=== PATIENT | female | born 1980 | race Caucasian/White ===

== ENCOUNTER 2020-11-01 17:03 | Inpatient (IN) | payer MEDICAID ==
[~2020-11-01] VITALS: Ht 167.6 cm; Wt 115.1 kg
--- NOTE | ~2020-11-01 | OP ---
PATIENT NAME: MARILIN BRAVO MEDICAL RECORD: [id number] :80 LOCATION:D.M2 D.2105 ADMISSION DATE:11/01/20 SURGEON: JESÚS ZIMMERMAN MD DATE OF OPERATION: 11/03/2020 PREOPERATIVE DIAGNOSES: 1. End-stage renal disease. 2. Complications with left upper extremity arteriovenous graft. 3. Morbid obesity. POSTOPERATIVE DIAGNOSES: 1. End-stage renal disease. 2. Complications with left upper extremity arteriovenous graft. 3. Morbid obesity. PROCEDURE: 1. Right IJ 23 cm HemoSplit catheter placement. 2. Left upper extremity fistulogram. 3. Fluoroscopic interpretation. SURGEON: Jesús Zimmerman MD REPORT OF PROCEDURE: The patient's right neck and chest were prepped and draped in sterile fashion. Using ultrasound guidance, a needle was used to cannulate the right internal jugular vein. Attempts were made to pass a wire, but we eventually had to pass a 0.035 Glidewire through an area of severe stenosis in the distal IJ and brachiocephalic vein, we were eventually able to pass through all of this down to the superior vena cava and we could see the wire pass into the right ventricle. A small dilator was placed over the wire and we were able to switch out for an Amplatz wire. A 23 cm HemoSplit catheter was placed through a small opening in the patient's right lateral chest and tunneled to the wire exit site. The multiple dilators were placed over the wire using fluoroscopic guidance followed by the dilator trocar device. The dilator and wire were removed and the catheter tips were advanced through the trocar. Once the trocar was removed, we pulled the catheter back until it rested in good position in the superior vena cava near the right atrial junction. The catheter aspirated nonpulsatile dark blood and flushed easily with heparinized saline. We then sutured this into place with 3-0 nylons and the skin incisions were closed with subcutaneous 5-0 Monocryl. After this was dressed appropriately, then we prepped the patient's left upper extremity. A micropuncture device was used to access the patient's left upper extremity graft. This graft extended from the brachial artery and was a straight line graft to the axillary vein. I could feel pulsatile flow through the graft. I was able to shoot some dye through the graft for fistulogram and this showed good flow of contrast through the AV graft through a stent towards the distal aspect of the graft near the venous access. This extended out and flowed easily into the axillary vein. Compression on the graft gave us good backfilling through the graft and the arterial anastomosis. All these anastomoses appeared to be widely open and patent and there was good flow. At this point I saw and did not do any further procedures because I did not feel that a revision would help out. Anatomically, the graft looked to be in good position with no significant stenosis present. At this point, the Angiocath was removed and a 5-0 Monocryl was used in a [id number] to close off the opening. COMPLICATIONS: None. OPERATIVE REPORT [id number] MARILIN BRAVO CONDITION: Stable. ANESTHESIA: General endotracheal. BLOOD LOSS: 100 mL. TRANSINT:[id number] Voice Confirmation ID: [id number] DOCUMENT ID: [id number] JESÚS ZIMMERMAN MD CC: NATHALY DYER and ELISA PROCTOR MD [id number] DICTATION DATE: 11/03/20 1434 MEDICAL DATA ANALYST: 11/03/20 1506 ADM IN [facility] [address] [place] [address]
[~2020-11-01 17:03] MED LIST: CATAPRES0.1 MG PO; GEMFIBROZIL600 MG PO; GLUCOTROL 5 MG T5 MG PO; HYDRALAZINE HC100 MG PO; ISOSORBIDE MONO60 M1 PO; LASIX80 MG PO; LISINOPRIL20 MG PO; LOPRESSOR25 MG PO; NORVASC10 MG PO; TRIPHROCAPS PO; TUMS PO
--- NOTE | 2020-11-01 17:30 | NUR ---
PT ARRIVED VIA WHEELCHAIR AT THIS TIME. PT AMBULATED TO BED WITHOUT ASSISTANCE. PROSTHETIC TO RLE NOTED, RR EVEN NON LABORED ON ROOM AIR. DIAYLSIS PORT NOTED TO LEFT EXTREMITY. APPROP SIGNS PLACED ON DOOR. PT AAOX3, PLEASANT AND ANSWERS QUESTIONS APPROP. NO DISTRESS NOTED, WILL CONTINUE TO MONITOR. CLWR.
[2020-11-01 17:48] VITALS: BP 167/88
[2020-11-01 17:57] LABS: BASOPHILS 0.1 % (0-2); EOSINOPHILS 2.1 % (0-7); HEMOGLOBIN 8.9 g/dL (12-16); IMMATURE GRANULOCYTES 0.1 % (0-5); LYMPHOCYTE ABS# 1.13 10x3/uL (1.18-3.74); LYMPHOCYTES 14.6 % (15-50); MCH 29.1 pg (26.0-34.0); MCHC 31.8 g/dL (31.0-37.0); MCV 91.5 fL (80.0-100.0); MEAN PLATELET VOLUME 9.9 fL (7.4-10.4); MONOCYTES 6.5 % (2-11); NEUTROPHIL ABS# 5.91 10x3/uL (1.56-6.13); NEUTROPHILS 76.6 % (40-80); PLATELET COUNT 227 10x3/uL (130-400); RBC 3.06 10x6/uL (4.00-5.40); RDW 14.2 % (11.5-14.5); WBC 7.7 10x3/uL (4.8-10.8)
--- NOTE | 2020-11-01 18:08 | NUR ---
MEDS GIVEN PER EMAR AT THIS TIME. PT SITTING UP IN BED TALKING ON CELL PHONE, RR EVEN NON LABORED. NO NEEDS VOICED. CLWR.
[2020-11-01 18:13] LABS: APTT 29.2 SECONDS (22.8-39.4); INR 1.17 (0.85-1.17); PROTIME 13.8 SECONDS (11.6-15.0)
[2020-11-01 18:25] LABS: ALBUMIN 3.5 g/dL (3.4-5.0); ANION GAP 18.7 mmol/L (8-16); BILIRUBIN - DIRECT 0.11 mg/dL (0.00-0.30); BILIRUBIN - INDIRECT 0.23 mg/dL (0.00-1.00); BILIRUBIN - TOTAL 0.34 mg/dL (0.2-1.3); CALCIUM 8.2 mg/dL (8.5-10.1); CARBON DIOXIDE 23.5 mmol/L (21.0-32.0); CREATININE - SERUM 12.2 mg/dL (0.6-1.3); PROTEIN - SERUM 6.4 g/dL (6.4-8.2)
[2020-11-01 18:35] LABS: POTASSIUM - SERUM 6.2 mmol/L (3.5-5.1)
--- NOTE | 2020-11-01 18:37 | NUR ---
MIRELLA MENDEZ REGARDING CRITICAL LAB VALUE.
--- NOTE | 2020-11-01 21:00 | NUR ---
PT POTASSIUM RESULTED AT [address] DYER PAGED AT 1927, NEW MED ORDERS OBTAINED AND PROCESSED. WILL RECHECK POTASSIUM LEVEL.
--- NOTE | 2020-11-01 22:08 | NUR ---
PT BLOOD SUGAR IS 65, PT AAOX4 AND IS ASYMPTOMATIC AT THIS TIME. PT GIVEN ORANGE JUICE TO DRINK AND WILL RECHECK SUGAR IN AN HOUR. PT REPORTS NO BOWEL MOVEMENT SINCE KAYEXALATE ADMINISTRATION. LAB IN ROOM TO DRAW POTASSIUM LEVEL.
[2020-11-02 05:18] VITALS: BP 178/79
[2020-11-02 06:20] LABS: BASOPHILS 0.4 % (0-2); EOSINOPHILS 2.4 % (0-7); HEMOGLOBIN 8.7 g/dL (12-16); IMMATURE GRANULOCYTES 0.1 % (0-5); LYMPHOCYTE ABS# 1.33 10x3/uL (1.18-3.74); LYMPHOCYTES 17.9 % (15-50); MCH 28.9 pg (26.0-34.0); MCHC 31.1 g/dL (31.0-37.0); MEAN PLATELET VOLUME 10.7 fL (7.4-10.4); MONOCYTES 7.9 % (2-11); NEUTROPHIL ABS# 5.29 10x3/uL (1.56-6.13); NEUTROPHILS 71.3 % (40-80); PLATELET COUNT 227 10x3/uL (130-400); RBC 3.01 10x6/uL (4.00-5.40); RDW 14.4 % (11.5-14.5); WBC 7.4 10x3/uL (4.8-10.8)
[2020-11-02 06:50] LABS: ALBUMIN 3.3 g/dL (3.4-5.0); ANION GAP 21.4 mmol/L (8-16); BILIRUBIN - TOTAL 0.37 mg/dL (0.2-1.3); CALCIUM 7.7 mg/dL (8.5-10.1); CARBON DIOXIDE 21.2 mmol/L (21.0-32.0); CREATININE - SERUM 12.6 mg/dL (0.6-1.3); PROTEIN - SERUM 6.1 g/dL (6.4-8.2)
[2020-11-02 07:00] LABS: POTASSIUM - SERUM 6.6 mmol/L (3.5-5.1)
--- NOTE | 2020-11-02 07:12 | NUR ---
MIRELLA MENDEZ REGARDING CRITICAL LAB VALUE
--- NOTE | 2020-11-02 07:15 | NUR ---
SPOKE WITH JOCELYNN GUEVARA REGARDING POTASSIUM. NEW ORDERS RECEIVED AND READ BACK.
--- NOTE | 2020-11-02 07:30 | NUR ---
DR. DYER IN ROOM AT THIS TIME. PT SITE APPEARS TO BE WORKING PER AND SHE WILL BE GOING TO DIALYSIS TODAY. MD STATES TO GIVE CALCIUM, D50 AMP AND 10U INSULIN. NO FURTHER ORDERS AT THIS TIME.
[2020-11-02 07:56] VITALS: BP 187/88
--- NOTE | 2020-11-02 08:22 | NUR ---
AM MEDS GIVEN INCLUDING X1 ORDER FOR POTASSIUM LEVEL. PT SITTING UP IN BED WITH HOB RAISED, RR EVEN NON LABORED ON ROOM AIR. PHONE GIVEN PER REQUEST. NO FURTHER NEEDS VOICED. CLWR.
--- NOTE | 2020-11-02 09:45 | NUR ---
REPORT GIVEN TO DIALYSIS AT THIS TIME.
[2020-11-02 10:52] VITALS: Ht 167.6 cm; Wt 115.1 kg
--- NOTE | 2020-11-02 12:57 | NUR ---
PT ARRIVED FROM DIALYSIS AT THIS TIME VIA TRANSPORT. PT PHONE PLUGGED IN PER REQUEST, PT LUNCH TRAY GIVEN. RR EVEN NON LABORED. NO NEEDS VOICED. CLWR.
--- NOTE | 2020-11-02 14:37 | NUR ---
MEDS GIVEN PER EMAR. PT SITTING UP IN BED, RR EVEN NON LABORED. NO NEEDS VOICED. CLWR.
--- NOTE | 2020-11-02 15:21 | NUR ---
IV TO RIGHT UPPER ARM D/C D/T DISCOMFORT. NEW IV PLACED TO RIGHT FA 22G, BLOOD RETURN NOTED. IV INFUSION INITIATED. WILL CONTINUE TO MONITOR. CLWR.
[2020-11-02 15:55] VITALS: BP 179/80
--- NOTE | 2020-11-02 16:05 | NUR ---
CONSENTS COMPLETED AT THIS TIME AND PLACED IN CHART.
--- NOTE | 2020-11-02 20:30 | NUR ---
PT IS LAYING IN BED ON RIGHT SIDE SLEEPING. AWAKED EASILY, AAOX4. PT EDUCATION DONE REGARDING MEDICATIONS, FALL PREVENTION, AND NPO AT MIDNIGHT. PT VERBALIZED UNDERSTANDING. PT MEDICATIONS GIVEN ORDERED. VITALS WNL.
[2020-11-02 21:34] VITALS: BP 175/86
[2020-11-03 00:40] VITALS: BP 156/74
[2020-11-03 06:06] VITALS: BP 166/85
[2020-11-03 06:11] LABS: BASOPHILS 0.2 % (0-2); EOSINOPHILS 1.4 % (0-7); HEMATOCRIT 25.8 % (36.0-48.0); HEMOGLOBIN 8.2 g/dL (12-16); IMMATURE GRANULOCYTES 0.3 % (0-5); LYMPHOCYTE ABS# 1.46 10x3/uL (1.18-3.74); LYMPHOCYTES 22.9 % (15-50); MCH 28.5 pg (26.0-34.0); MCHC 31.8 g/dL (31.0-37.0); MEAN PLATELET VOLUME 10.2 fL (7.4-10.4); MONOCYTES 7.8 % (2-11); NEUTROPHILS 67.4 % (40-80); PLATELET COUNT 233 10x3/uL (130-400); RBC 2.88 10x6/uL (4.00-5.40); RDW 14.1 % (11.5-14.5); WBC 6.4 10x3/uL (4.8-10.8)
[2020-11-03 06:14] LABS: MCV 89.6 fL (80.0-100.0)
[2020-11-03 06:27] LABS: ALBUMIN 3.2 g/dL (3.4-5.0); ANION GAP 20.2 mmol/L (8-16); BILIRUBIN - TOTAL 0.37 mg/dL (0.2-1.3); CALCIUM 7.8 mg/dL (8.5-10.1); CARBON DIOXIDE 23.1 mmol/L (21.0-32.0); CREATININE - SERUM 14.8 mg/dL (0.6-1.3); POTASSIUM - SERUM 5.3 mmol/L (3.5-5.1); PROTEIN - SERUM 6.3 g/dL (6.4-8.2)
--- NOTE | 2020-11-03 06:39 | NUR ---
DR. MANISHA VU FOR CRITICAL POTASSIUM LEVEL
--- NOTE | 2020-11-03 08:00 | NUR ---
PT RECEIVED AWAKE AND ALERT, NPO FOR PROCEDURE TODAY. LEFT ARM FISTULA WITH BRUIT AND THRILL. BP ELEVATED SO MEDS GIVEN, WILL LET DIALYSIS KNOW IF SHE GOES DOWN TODAY.
[2020-11-03 08:02] VITALS: BP 205/109
[2020-11-03 11:10] VITALS: BP 184/102
--- NOTE | 2020-11-03 15:24 | NUR ---
K TO TRANSPORT TO [facility] WAITING FOR DIALYSIS SC DR ANGULO
[2020-11-03 15:36] VITALS: BP 183/87
--- NOTE | 2020-11-03 16:04 | NUR ---
PT TO ROOM FROM PACU. VITALS STABLE. TRANSPORT TO DIALYSIS FOR TREATMENT. RIGHT HEMOSPLIT NOTED WITH SMALL AMT DRAINAGE UNDER DRESSING.
[2020-11-03 20:50] VITALS: BP 210/100
--- NOTE | 2020-11-04 05:00 | NUR ---
I have reviewed this patient and I concur with the Shift Assessment completed by the Licensed Practical Nurse today this shift.
[2020-11-04 06:25] LABS: BASOPHILS 0.3 % (0-2); EOSINOPHILS 0.6 % (0-7); HEMATOCRIT 28.3 % (36.0-48.0); IMMATURE GRANULOCYTES 0.1 % (0-5); LYMPHOCYTE ABS# 1.41 10x3/uL (1.18-3.74); LYMPHOCYTES 20.7 % (15-50); MCH 28.6 pg (26.0-34.0); MCHC 31.8 g/dL (31.0-37.0); MCV 89.8 fL (80.0-100.0); MEAN PLATELET VOLUME 10.5 fL (7.4-10.4); MONOCYTES 9.9 % (2-11); NEUTROPHIL ABS# 4.65 10x3/uL (1.56-6.13); NEUTROPHILS 68.4 % (40-80); RBC 3.15 10x6/uL (4.00-5.40); RDW 13.9 % (11.5-14.5); WBC 6.8 10x3/uL (4.8-10.8)
[2020-11-04 06:34] LABS: PLATELET COUNT 282 10x3/uL (130-400)
[2020-11-04 06:42] LABS: ALBUMIN 3.4 g/dL (3.4-5.0); ANION GAP 15.2 mmol/L (8-16); BILIRUBIN - TOTAL 0.34 mg/dL (0.2-1.3); CALCIUM 7.9 mg/dL (8.5-10.1); CARBON DIOXIDE 27.8 mmol/L (21.0-32.0); CREATININE - SERUM 9.8 mg/dL (0.6-1.3)
[2020-11-04 07:38] VITALS: BP 199/96
--- NOTE | 2020-11-04 08:00 | NUR ---
PT RECEIVED AWAKE AND ALERT IN BED. ANTICIPATED DISCHARGE TODAY AFTER DIALYSIS.
--- NOTE | 2020-11-04 12:32 | NUR ---
Nutrition Follow-up: POD 1 AVF revision, hemosplit placement. Eating well. Noted plans to d/c. Diet: Renal PO intake: 100% this AM No new wt; last wt: 253.7# (11/02) Last BM: 3 Labs noted: Na 135, K+ 4.0, Glu 83, Ca 7.9, Alb 3.4 Meds noted: Glucotrol, Lasix -RD will follow up within 7 days if pt still admitted.
--- NOTE | 2020-11-04 14:26 | NUR ---
PT BACK FROM DIALYSIS, MEAL TRAY IN ROOM.
--- NOTE | 2020-11-04 14:54 | NUR ---
TWO IV REMOVED. H-SPLIT IN PLACE. DISCHARGE INSTRUCTIONS REVIEWED AND SIGNED. RIDE HERE, WHEELED TO ER FOR HOME.
--- NOTE | 2020-11-07 21:17 | MORECARE ---
CASE MANAGEMENT DISCHARGE SUMMARY PATIENT: MARILIN BRAVO UNIT: [id number] ADM DATE: 11/01/20 AGE: 40 : 80 SEX: F ROOM/BED: D.2105 AUTHOR: LEXI MADRIGAL PHYSICIAN: REFERRING PHYSICIAN: NATHALY DYER MD DATE OF SERVICE: 11/07/20 Discharge Plan Patient Name: MARILIN BRAVO Facility: [facility]:[place] : 1980 Planned Disposition: Home Anticipated Discharge Date: Discharge Date: 11/04/2020 Expected LOS: Initial Reviewer: [email or web address] Initial Review Date: 11/01/2020 Generated: 11/07/20 10:17 pm Patient Name: MARILIN BRAVO Page [id number] at 2117 All edits/amendments must be made on the electronic document DICTATION DATE: 11/07/202116 RN X RAY: DRU 11/07/202116 RPT#: [id number] DC DATE:11/04/20 STATUS: DIS IN [facility] [address] [place] [address] END OF REPORT
--- NOTE | 2020-11-07 21:30 | MORECARE ---
CASE MANAGEMENT DISCHARGE SUMMARY PATIENT: MARILIN BARVO UNIT: [id number] ADM DATE: 11/01/20 AGE: 40 : 80 SEX: F ROOM/BED: D.2105 AUTHOR: LEXI MADRIGAL PHYSICIAN: REFERRING PHYSICIAN: NATHALY DYER MD DATE OF SERVICE: 11/07/20 Discharge Plan Patient Name: MARILIN BRAVO [facility] [facility] 1980 Planned Disposition: Home Anticipated Discharge Date: Discharge Date: 11/04/2020 Expected LOS: Initial Reviewer: [email or web address] Initial Review Date: 11/01/2020 Generated: 11/07/20 10:29 pm DCPIA - Discharge Planning Initial Assessment Updated by [email or web address]: Naina Moody on 11/07/20 9:25 pm * Is the patient Alert and Oriented? Yes * How many steps to enter\exit or inside your home? * PCP GINO GORDON * Pharmacy [facility] * Preadmission Environment Home with Family * ADLs Independent * Equipment None * List name and contact numbers for known caregivers / representatives who currently or will assist patient after discharge: RICKY BRAVO- [phone] * Verbal permission to speak to the caregivers and representatives has been obtained from the patient. N/A * Community resources currently utilized None * Additional services required to return to the preadmission environment? No * Can the patient safely return to the preadmission environment? Yes * Has this patient been hospitalized within the prior 30 days at any hospital? No Last DP export: 11/07/20 8:18 pm Patient Name: MARILIN BRAVO Page 63617 at 2130 All edits/amendments must be made on the electronic document DICTATION DATE: 11/07/202129 ANALYTICAL DATA MINER: DRU 11/07/202129 RPT#: [id number] DC DATE:11/04/20 STATUS: DIS IN [facility] [address] [place] [address] END OF REPORT
--- NOTE | 2020-11-07 21:43 | MORECARE ---
CASE MANAGEMENT DISCHARGE SUMMARY PATIENT: MARILIN BRAVO UNIT: [id number] ADM DATE: 11/01/20 AGE: 40 : 80 SEX: F ROOM/BED: D.7572 AUTHOR: KAITLIN,DOC PHYSICIAN: REFERRING PHYSICIAN: NATHALY DYER MD DATE OF SERVICE: 11/07/20 Discharge Plan Patient Name: MARILIN BRAVO Facility: [facility]:[place] : 1980 Planned Disposition: Home Anticipated Discharge Date: Discharge Date: 11/04/2020 Expected LOS: Initial Reviewer: [email or web address] Initial Review Date: 11/01/2020 Generated: 11/07/20 10:42 pm Comments DCP- Discharge Planning Updated by [email or web address]: Naina Moody on 11/07/20 8:[address] LATE ENTRY 11/04/20 Patient Name: MARILIN BRAVO Admission Status: Elective Accout number: [id number] Admission Date: 11-01-2020 : 1980 Admission Diagnosis: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 CM educated patient on the CM role and verbal consent given by patient to complete assessment. Patient lives at home with roommate . Patient is independent. At discharge patient plans to return home and feels this is a safe discharge. CM discussed availability of home health, rehab services, and medical equipment. Patient will have family to transport home. Patient has dialysis [facility] in [facility], Patient denied known discharge needs at this time. CM will continue to follow and will assist as needed with dc plans/needs. Casting House Worker: Naina Moody DCPIA - Discharge Planning Initial Assessment Updated by [email or web address]: Naina Moody on 11/07/20 9:25 pm * Is the patient Alert and Oriented? Yes * How many steps to enter\exit or inside your home? * PCP GINO GORDON * Pharmacy [facility] * Preadmission Environment Home with Family * ADLs Independent * Equipment None * List name and contact numbers for known caregivers / representatives who currently or will assist patient after discharge: RICKY BRAVO- [phone] * Verbal permission to speak to the caregivers and representatives has been obtained from the patient. N/A * Community resources currently utilized None * Additional services required to return to the preadmission environment? No * Can the patient safely return to the preadmission environment? Yes * Has this patient been hospitalized within the prior 30 days at any hospital? No Last DP export: 11/07/20 8:30 pm Patient Name: MARILIN BRAVO Page [phone] at 2143 All edits/amendments must be made on the electronic document DICTATION DATE: 11/07/202141 SHEET METAL PRODUCTION WORKER: DRU 11/07/202141 RPT#: [id number] DC DATE:11/04/20 STATUS: DIS IN [facility] [address] [place] [address] END OF REPORT
== END 2020-11-04 14:55 | disposition home or self-care (01) | DRG 314 ==
LOC: D.M2 17:03
PROVIDERS: Surgery; ADMIT Internal Medicine Nephrology; ATTEND Internal Medicine Nephrology
PROC: 5A1D70Z Performance of Urinary Filtration, Intermittent, Less than 6 Hours Per Day (ICD-10-PCS; 2020-11-02)
PROC: B51W1ZZ Fluoroscopy of Dialysis Shunt/Fistula using Low Osmolar Contrast (ICD-10-PCS; 2020-11-03)
PROC: 05HM33Z Insertion of Infusion Device into Right Internal Jugular Vein, Percutaneous Approach (ICD-10-PCS; principal; 2020-11-03 11:00)
PROC: 0JH63XZ Insertion of Tunneled Vascular Access Device into Chest Subcutaneous Tissue and Fascia, Percutaneous Approach (ICD-10-PCS; 2020-11-03 11:00)
DX: T82.868A Thrombosis due to vascular prosthetic devices, implants and grafts, initial encounter (principal); N18.6 End stage renal disease; T82.590A Other mechanical complication of surgically created arteriovenous fistula, initial encounter; I12.0 Hypertensive chronic kidney disease with stage 5 chronic kidney disease or end stage renal disease; Z68.41 Body mass index [BMI] 40.0-44.9, adult; E87.1 Hypo-osmolality and hyponatremia; Y83.9 Surgical procedure, unspecified as the cause of abnormal reaction of the patient, or of later complication, without mention of misadventure at the time of the procedure; E11.22 Type 2 diabetes mellitus with diabetic chronic kidney disease; Z99.2 Dependence on renal dialysis; E87.5 Hyperkalemia; E66.01 Morbid (severe) obesity due to excess calories

== ENCOUNTER 2020-11-19 16:26 | Inpatient (IN) | payer MEDICARE, BC ==
[~2020-11-19] VITALS: Ht 167.6 cm; Wt 113.4 kg
[~2020-11-19 16:26] MED LIST changes: +GLIPIZIDE5 MG PO; -GLUCOTROL 5 MG T5 MG PO
[2020-11-19] MEDS ORDERED: METOPROLOL TART50 MG PO (16:45)
[2020-11-19] MEDS ORDERED: CARDURA2 MG PO (16:46)
[2020-11-19] MEDS ORDERED: PLAVIX75 MG PO (16:47)
[2020-11-19 17:08] VITALS: BP 167/81
[2020-11-19 17:45] VITALS: BP 167/81; BMI 40.4
[2020-11-19 18:15] LABS: BASOPHILS 0.3 % (0-2); EOSINOPHILS 2.1 % (0-7); HEMATOCRIT 29.2 % (36.0-48.0); HEMOGLOBIN 9.2 g/dL (12-16); IMMATURE GRANULOCYTES 0.2 % (0-5); LYMPHOCYTE ABS# 1.09 10x3/uL (1.18-3.74); LYMPHOCYTES 11.4 % (15-50); MCH 29.1 pg (26.0-34.0); MCHC 31.5 g/dL (31.0-37.0); MCV 92.4 fL (80.0-100.0); MEAN PLATELET VOLUME 9.4 fL (7.4-10.4); MONOCYTES 6.7 % (2-11); NEUTROPHIL ABS# 7.59 10x3/uL (1.56-6.13); NEUTROPHILS 79.3 % (40-80); PLATELET COUNT 254 10x3/uL (130-400); RBC 3.16 10x6/uL (4.00-5.40); RDW 14.3 % (11.5-14.5); WBC 9.6 10x3/uL (4.8-10.8)
[2020-11-19 18:37] LABS: CALCIUM 8.1 mg/dL (8.5-10.1); CARBON DIOXIDE 20.9 mmol/L (21.0-32.0); CREATININE - SERUM 13.1 mg/dL (0.6-1.3); POTASSIUM - SERUM 5.9 mmol/L (3.5-5.1)
[2020-11-19 20:20] VITALS: BP 164/50
--- NOTE | 2020-11-19 22:41 | NUR ---
INITIAL ROUNDS COMPLETED AT 1920 HRS. PT RESTING WITH EYES CLOSED. RESP EVEN AND REGULAR. ASSESSMENT COMPLETED AT 2015 H RS. VSS. ALERT AND ORIENTED TO PERSON, PLACE AND TIME. STOLL. PALPABLE PERIPHERAL PULSES. LUNGS DIMINISHED IN BASES BILAT. R BKA NOTED. IV TO R STEFANI SL. L FISTULA WITH NO BRUIT OR THRILL. R CHEST HEMOSPLIT NOTED. PM MEDS IGVEN PER ORDERS. BSC P,ACED NEXT TO BED. PT CURRENTLY RESTING WITH EYES CLOSED. RESP EVEN AND REGULAR. SR UP X1, CALL LIGHT WITHIN REACH.
[2020-11-20 00:13] VITALS: BP 117/68
--- NOTE | 2020-11-20 00:27 | NUR ---
PT RESTING WITH EYES CLOSED. RESP EVEN AND REGULAR. SR UP X1, CALL LIGHT WITHIN REACH.
--- NOTE | 2020-11-20 02:10 | NUR ---
PT RESTING WITH EYES CLOSED. RESP EVEN AND REGULAR. CALL LIGHT WITHIN REACH.
[2020-11-20 03:34] VITALS: BP 137/74
--- NOTE | 2020-11-20 03:46 | NUR ---
PT RESTING WITH EYES CLOSED. RESP EVEN AND REGULAR. CALL LIGHT WITHIN REACH.
[2020-11-20 06:00] LABS: BASOPHILS 0.2 % (0-2); EOSINOPHILS 1.5 % (0-7); HEMATOCRIT 25.7 % (36.0-48.0); HEMOGLOBIN 8.1 g/dL (12-16); IMMATURE GRANULOCYTES 0.2 % (0-5); LYMPHOCYTE ABS# 0.91 10x3/uL (1.18-3.74); LYMPHOCYTES 10.4 % (15-50); MCH 28.5 pg (26.0-34.0); MCHC 31.5 g/dL (31.0-37.0); MCV 90.5 fL (80.0-100.0); MEAN PLATELET VOLUME 9.5 fL (7.4-10.4); MONOCYTES 5.5 % (2-11); NEUTROPHIL ABS# 7.22 10x3/uL (1.56-6.13); NEUTROPHILS 82.2 % (40-80); PLATELET COUNT 235 10x3/uL (130-400); RBC 2.84 10x6/uL (4.00-5.40); RDW 14.4 % (11.5-14.5); WBC 8.8 10x3/uL (4.8-10.8)
[2020-11-20 06:35] LABS: ANION GAP 22.4 mmol/L (8-16); CALCIUM 7.9 mg/dL (8.5-10.1); CARBON DIOXIDE 20.1 mmol/L (21.0-32.0)
--- NOTE | 2020-11-20 06:45 | NUR ---
VSS THROUGHOUT NGIHT. PT RESTED WELL DURING SHIFT. HIBICLENS BATH IN PROGRESS. NPO FOR AM SURGERY. NEEDS MET; WILL CONTINUE TO MONITOR.
[2020-11-20 06:57] LABS: POTASSIUM - SERUM 6.5 mmol/L (3.5-5.1)
--- NOTE | 2020-11-20 07:14 | NUR ---
GLUCOSE 41 PER LAB. CHECKED FSBS ON UNIT WITH RESULT OF 49. 1/2 AMP D50W GIVEN PER PROTOCOL.
[2020-11-20 09:28] VITALS: BP 142/80
--- NOTE | 2020-11-20 10:32 | NUR ---
PRE-OPS GIVEN. TO OR BY BED.
--- NOTE | 2020-11-20 13:38 | NUR ---
TAKEN TO DIALYSIS BY BED. WILL CONT. PLAN OF CARE.
[2020-11-20 17:07] LABS: HEMATOCRIT 25.1 % (36.0-48.0)
--- NOTE | 2020-11-20 20:13 | NUR ---
INITIAL ROUNDS COMPLETED AT 1915 HRS. PT DENIES ANY DISCOMFORT. ASSESSMENT COMPLETED AT 1940 HRS. SR PER CM HR 76. ALERT AND ORIENTED TO PERSON, PLACE AND TIME. STOLL. OLD FISTULA TO L A RM WITH NO BRUIT OR THRILL. LUNGS DIMINISHED IN BASES BILAT. DRESSINGS TO BILAT NECK AREAS CLEAN,DRY AND INTACT. IV TO R HAND SL. R THIGH HEMOSPLIT OOZING BLODD WITH SANDBAG FOR PRESSURE. RBKA NOTED. BLOOD SUGAR 255 AT 2000 HRS. SR UP X2, CALL LIGHT WITHIN REACH.
[2020-11-20 20:41] VITALS: BP 175/94
--- NOTE | 2020-11-20 21:25 | NUR ---
PM MEDS GIVEN. R THIGH HEMOSPLIT CONTINUES TO BLEED. DRESSING REINFORCED AND SANDBAG APPLIED. PT TOLERATED ACTIVITY WELL. SR UP X2, CALL LIGHT WITHIN REACH.
[2020-11-21 00:18] VITALS: BP 118/66
--- NOTE | 2020-11-21 00:35 | NUR ---
VSS. BLEEDING TO HEMOSPLIT SLOWING DOWN. OFFERED TO CHANGE PT'S BED PT PT STATED TO WAIT UNTIL AFTER LAST SET OF VS. CALL LIGHT WITHINREACH.
--- NOTE | 2020-11-21 02:08 | NUR ---
NO CHANGE TO HEMOSPLIT. CONTINUES TO HAVE A SLOW OOZE. CALL LIGHT WITHIN REACH.
[2020-11-21 04:15] VITALS: BP 125/82
--- NOTE | 2020-11-21 04:36 | NUR ---
VSS. MINIMAL BLEEDING AT HEMOSPLIT SITE. SR UP X2,CALL LGHT WITHIN REACH.
--- NOTE | 2020-11-21 05:25 | NUR ---
BED LINENS CHANGED. HEMOSPLIT REINFORCED DRESSING CHANGED. HEMOSPLIT NOT BLEEDING AT THIS TIME. PT HAS C/O SEVERE PAIN TO R THIGH AFTER ACTIVITY. RENAL SERVICES PAGED.
--- NOTE | 2020-11-21 05:30 | NUR ---
Skyler EDMONDS APN FROM RENAL SERVICES RETURNED PAGE. INFORMED OF PT'S C/O PAIN TO HEMOSPLIT SITE. NEW ORDERS RECEIVED AND NOTED.
[2020-11-21 05:45] LABS: ANION GAP 16.3 mmol/L (8-16); CALCIUM 7.7 mg/dL (8.5-10.1)
[2020-11-21 05:48] LABS: CARBON DIOXIDE 25.7 mmol/L (21.0-32.0); CREATININE - SERUM 10.3 mg/dL (0.6-1.3)
--- NOTE | 2020-11-21 05:49 | NUR ---
NORCO 7.5MGPO GIVEN FOR C/O INCISIONAL PAIN. VSS. NEEDS MET; WILL CONTINUE TO MONITOR.
[2020-11-21 06:00] LABS: BASOPHILS 0.5 % (0-2); EOSINOPHILS 2.4 % (0-7); HEMATOCRIT 21.1 % (36.0-48.0); IMMATURE GRANULOCYTES 0.2 % (0-5); LYMPHOCYTE ABS# 1.05 10x3/uL (1.18-3.74); LYMPHOCYTES 16.9 % (15-50); MCH 28.7 pg (26.0-34.0); MCHC 32.2 g/dL (31.0-37.0); MEAN PLATELET VOLUME 9.6 fL (7.4-10.4); NEUTROPHIL ABS# 4.34 10x3/uL (1.56-6.13); PLATELET COUNT 231 10x3/uL (130-400); RBC 2.37 10x6/uL (4.00-5.40); RDW 14.5 % (11.5-14.5)
[2020-11-21 06:40] LABS: WBC 6.2 10x3/uL (4.8-10.8)
[2020-11-21 06:43] LABS: HEMOGLOBIN 6.8 g/dL (12-16)
--- NOTE | 2020-11-21 06:46 | NUR ---
H&H 6.8 AND 21.1. RENAL SERVICES PAGED.
--- NOTE | 2020-11-21 06:59 | NUR ---
Skyler EDMONDS APN RETURNS PAGE. INFORMED OF PT'S CURRENT H&H, K+ OF 6.0. Skyler HUERTA APN STATED PT WILL OG TO DIALYSIS TODAY AND GET BLOOD IN DIALYSIS.
[2020-11-21 08:00] VITALS: BP 170/67
--- NOTE | 2020-11-21 08:07 | NUR ---
PT AWAKE AND ALERT, RR EVEN NON LABORED. AM MEDS GIVEN PER EMAR AT THIS TIME WITH FRESH JUICE. DRESSING TO RIGHT GROIN NOTED, DRY BLOOD PRESENT. NO ACTIVE BLEEDING SEEN. TENDER TO TOUCH. NO NEEDS VOICED AT THIS TIME. CLWR.
--- NOTE | 2020-11-21 10:04 | NUR ---
PT LYING ON BACK, HOB RAISED, EYES CLOSED. PT DENIES ANY NEEDS AT THIS TIME. CLWR.
[2020-11-21 12:08] VITALS: BP 96/49
[2020-11-21 12:38] VITALS: Ht 167.6 cm; Wt 113.4 kg
--- NOTE | 2020-11-21 16:43 | NUR ---
PT OFF UNIT IN DAILYSIS
[2020-11-21 19:34] VITALS: BP 143/71
[2020-11-22 00:29] VITALS: BP 100/42
[2020-11-22 00:45] VITALS: BP 117/57
[2020-11-22 03:34] VITALS: BP 120/61
--- NOTE | 2020-11-22 04:52 | NUR ---
Patient appeared to have slept well through the night, she voiced no concerns.
[2020-11-22 04:56] LABS: BASOPHILS 0.2 % (0-2); EOSINOPHILS 4.8 % (0-7); IMMATURE GRANULOCYTES 0.2 % (0-5); LYMPHOCYTES 18.4 % (15-50); MCH 28.9 pg (26.0-34.0); MCHC 32.6 g/dL (31.0-37.0); MCV 88.7 fL (80.0-100.0); MEAN PLATELET VOLUME 9.7 fL (7.4-10.4); MONOCYTES 9.3 % (2-11); NEUTROPHIL ABS# 4.02 10x3/uL (1.56-6.13); NEUTROPHILS 67.1 % (40-80); PLATELET COUNT 229 10x3/uL (130-400); RDW 14.6 % (11.5-14.5)
[2020-11-22 05:12] LABS: HEMATOCRIT 26.7 % (36.0-48.0); HEMOGLOBIN 8.7 g/dL (12-16); RBC 3.01 10x6/uL (4.00-5.40)
[2020-11-22 05:13] LABS: ANION GAP 14.5 mmol/L (8-16); CALCIUM 8.1 mg/dL (8.5-10.1); CARBON DIOXIDE 27.1 mmol/L (21.0-32.0)
[2020-11-22 05:15] LABS: CREATININE - SERUM 7.7 mg/dL (0.6-1.3); POTASSIUM - SERUM 4.6 mmol/L (3.5-5.1)
--- NOTE | 2020-11-22 07:46 | NUR ---
AM ROUNDING DONE WITH PATIENT SITTING UP IN THE BED WITH NO COMPLAINTS AT PRESENT. RIGHT GROIN HEMISPLIT SEEN WITH INTACT DRESSING. OLD RIGHT BKA WITH PROTHESIS AT SINK. ON ROOM AIR. HEMODIALYSIS IS M,W,F. ON HEART MONITOR. OLD LEFT AVF.
[2020-11-22 08:00] VITALS: BP 115/50
--- NOTE | 2020-11-22 10:16 | NUR ---
TO DIALYSIS VIA BED.
--- NOTE | 2020-11-22 12:15 | NUR ---
STILL OFF THE FLOOR IN DIALYSIS.
--- NOTE | 2020-11-22 14:05 | NUR ---
RETURNS FROM DIALYSIS
--- NOTE | 2020-11-22 15:04 | NUR ---
RIGHT GROIN HEMISPLIT DRESSING CHANGED USING STERILE TECHNIQUE. DATED.
--- NOTE | 2020-11-22 16:08 | NUR ---
VERBRAL AND WRITTEN DISCHARGE INSTRUCTIONS GIVEN TO PATIENT. SALINE LOCK REMOVED WITH CATH TIP INTACT. DISCHARGED HOME.
--- NOTE | 2020-11-22 16:48 | MORECARE ---
CASE MANAGEMENT DISCHARGE SUMMARY PATIENT: MARILIN BRAVO UNIT: [id number] ADM DATE: 11/19/20 AGE: 40 : 80 SEX: F ROOM/BED: [facility] AUTHOR: KAITLIN,DOC PHYSICIAN: REFERRING PHYSICIAN: MARGO LOCKETT DO DATE OF SERVICE: 11/22/20 Case Management Discharge Planning Summary DCP REVIEW SUMMARY ANTICIPATED D/C DATE: EXPECTED LOS : CASE STATUS: DCP Initiated INITIAL REVIEW: 11/22/2020 INITIAL REVIEWER: Bebe Sawyer FINAL DISCHARGE DISPOSITION: : FINAL REVIEWER: FINAL REVIEW DATE: DCP Focus Questions & Answers - Added on: QUESTION: ANSWER : PATIENT: MARILIN BRAVO ENCOUNTER: [id number] MEDICAL RECORD#: [id number] ADMISSION DATE: 11/19/2020 DISCHARGE DATE: 11/22/2020 ATTENDING MD: : AGE: 40 MARITAL STATUS: U DC PLAN ID: [id number] FACILITY: [facility] PRINTED ON: 11/22/20 16:48 CT All edits/amendments must be made on the electronic document DICTATION DATE: 11/22/201647 MOLDER SHOULDER PAD: DM 11/22/201647 RPT#: [id number] DC DATE:11/22/20 STATUS: DIS IN [facility] [address] [place] [address] END OF REPORT
--- NOTE | 2020-11-22 17:01 | MORECARE ---
CASE MANAGEMENT DISCHARGE SUMMARY PATIENT: MARILIN RAMIREZ UNIT: [id number] ADM DATE: 11/19/20 AGE: 40 : 80 SEX: F ROOM/BED: D.5468 AUTHOR: KAITLIN,DOC PHYSICIAN: REFERRING PHYSICIAN: MARGO LOCKETT DO DATE OF SERVICE: 11/22/20 Case Management Discharge Planning Summary COMMENTS ENTERED DATE: 11/22/20 16:51 CT COMMENT TYPE: Discharge Planning REVIEWER: Bebe Sawyer CM met with patient to discuss discharge planning/needs. She lives with 2 adult room mates. States she is independent with her care. States she has dialysis TTHSA at [facility] from [phone]. States she has a walker, wheelchair, cane and a prosthetic leg. Denies need for further DME. States her dad will transport her home. Her PCP is Nikolay Samano in [place] and uses the [facility] in [place]. Declines need for home health or rehab. No needs identified. DCP REVIEW SUMMARY ANTICIPATED D/C DATE: EXPECTED LOS : CASE STATUS: DCP Initiated INITIAL REVIEW: 11/22/2020 INITIAL REVIEWER: Bebe Sawyer FINAL DISCHARGE DISPOSITION: : FINAL REVIEWER: FINAL REVIEW DATE: DCP Focus Questions & Answers DCP REV -DCP Review Added on: 11/22/20 4:50 pm QUESTION: ANSWER DCP Screen High Risk Factors: : 3 or more ED visits within the last 60 days DCP Evaluation Patient gives permission to discuss discharge plans with: (name, relationship and number) : Noelle Ramirez - mother - [phone] Pallavi Cruz - sister - [phone] Physical Status: : Independent with ADL's Baseline cognitive status: : *Oriented to person, place, situation, time and present Patient's ability to cope with chronic illness : d. No chronic illness Family / Caregiver's ability to cope with chronic illness: : a. Adequate (ability to meet patient's medical needs, ensures patient attends medical appts.) Living Arrangements: : Home with others Medication Management: : Patient states can afford medications Pharmacy name(s): : [facility] in [place] Does Patient have transportation to get home and to follow-up medical appointments when discharged from the hospital? : Yes Equipment in use: : Cane - Single Leg Equipment in use: : Other Equipment in use: : Walker - Rolling Equipment in use: : Wheelchair Other Equipment comments: : Prosthetic leg Mental health screen: : No mental health history Resources / Services in place: : Dialysis - facility hemodialysis Contact information for resources in use: : [facility] [phone] Patient's current cognitive status: : *Oriented to person, place, situation, time and present Family / Caregiver's ability to cope with chronic illness: : a. Adequate (ability to meet patient's medical needs, ensures patient attends medical appts.) Does the patient have the ability to pay for or attain post discharge needs / services? : Yes Is there a likelihood that the patient will require additional services to return to the preadmission environment? : Yes Results of this evaluation have been discussed with: : Patient Patient and/or caregiver agree upon recommended discharge plan? : Yes Equipment needed for post hospitalization: : None Physical environment modification needed / anticipated for discharge: : No Planned post hospital services available for patient? : No Would patient like to participate in any Care Coordination programs (if applicable): : Not applicable DCP Re-evaluation Would patient like to participate in any Care Coordination programs (if applicable): : Not applicable PATIENT: MARILIN RAMIREZ ENCOUNTER: [id number] MEDICAL RECORD#: [id number] ADMISSION DATE: 11/19/2020 DISCHARGE DATE: 11/22/2020 ATTENDING MD: LOGAN: AGE: 40 MARITAL STATUS: U DC PLAN ID: [id number] FACILITY: [facility] PRINTED ON: 11/22/20 17:01 CT All edits/amendments must be made on the electronic document DICTATION DATE: 11/22/201700 STATION SUPERVISOR: DRU 11/22/201700 RPT#: [id number] DC DATE:11/22/20 STATUS: DIS IN [facility] [address] [place] [address] END OF REPORT
--- NOTE | 2020-11-23 10:34 | MORECARE ---
CASE MANAGEMENT DISCHARGE SUMMARY PATIENT: MARILIN RAMIREZ UNIT: [id number] ADM DATE: 11/19/20 AGE: 40 : 80 SEX: F ROOM/BED: D.2103 AUTHOR: KAITLIN,DOC PHYSICIAN: REFERRING PHYSICIAN: MARGO LOCKETT DO DATE OF SERVICE: 11/23/20 Case Management Discharge Planning Summary COMMENTS ENTERED DATE: 11/22/20 16:51 CT COMMENT TYPE: Discharge Planning REVIEWER: Bebe Sawyer CM met with patient to discuss discharge planning/needs. She lives with 2 adult room mates. States she is independent with her care. States she has dialysis TTHSA at [facility] from [phone]. States she has a walker, wheelchair, cane and a prosthetic leg. Denies need for further DME. States her dad will transport her home. Her PCP is Nikolay Samano in [place] and uses the [facility] in [place]. Declines need for home health or rehab. No needs identified. DCP REVIEW SUMMARY ANTICIPATED D/C DATE: EXPECTED LOS : CASE STATUS: DCP Initiated INITIAL REVIEW: 11/22/2020 INITIAL REVIEWER: Bebe Sawyer FINAL DISCHARGE DISPOSITION: : FINAL REVIEWER: FINAL REVIEW DATE: DCP Focus Questions & Answers DCP REV -DCP Review Added on: 11/22/20 4:50 pm QUESTION: ANSWER DCP Screen High Risk Factors: : 3 or more ED visits within the last 60 days DCP Evaluation Patient gives permission to discuss discharge plans with: (name, relationship and number) : Noelle Ramirez - mother - [phone] Pallavi Cruz - sister - [phone] Physical Status: : Independent with ADL's Baseline cognitive status: : *Oriented to person, place, situation, time and present Patient's ability to cope with chronic illness : d. No chronic illness Family / Caregiver's ability to cope with chronic illness: : a. Adequate (ability to meet patient's medical needs, ensures patient attends medical appts.) Living Arrangements: : Home with others Medication Management: : Patient states can afford medications Pharmacy name(s): : [facility] in [place] Does Patient have transportation to get home and to follow-up medical appointments when discharged from the hospital? : Yes Equipment in use: : Cane - Single Leg Equipment in use: : Other Equipment in use: : Walker - Rolling Equipment in use: : Wheelchair Other Equipment comments: : Prosthetic leg Mental health screen: : No mental health history Resources / Services in place: : Dialysis - facility hemodialysis Contact information for resources in use: : [facility] [phone] Patient's current cognitive status: : *Oriented to person, place, situation, time and present Family / Caregiver's ability to cope with chronic illness: : a. Adequate (ability to meet patient's medical needs, ensures patient attends medical appts.) Does the patient have the ability to pay for or attain post discharge needs / services? : Yes Is there a likelihood that the patient will require additional services to return to the preadmission environment? : Yes Results of this evaluation have been discussed with: : Patient Patient and/or caregiver agree upon recommended discharge plan? : Yes Equipment needed for post hospitalization: : None Physical environment modification needed / anticipated for discharge: : No Planned post hospital services available for patient? : No Would patient like to participate in any Care Coordination programs (if applicable): : Not applicable DCP Re-evaluation Would patient like to participate in any Care Coordination programs (if applicable): : Not applicable PATIENT: MARILIN RAMIREZ ENCOUNTER: [id number] MEDICAL RECORD#: [id number] ADMISSION DATE: 11/19/2020 DISCHARGE DATE: 11/22/2020 ATTENDING MD: LOGAN: AGE: 40 MARITAL STATUS: U DC PLAN ID: [id number] FACILITY: [facility] PRINTED ON: 11/23/20 10:34 CT All edits/amendments must be made on the electronic document DICTATION DATE: 11/23/20 1034 TRACTOR EXPERT: DRU 11/23/20 1034 RPT#: [id number] DC DATE:11/22/20 STATUS: DIS IN [facility] [address] [place] [address] END OF REPORT
--- NOTE | 2020-11-23 17:34 | MORECARE ---
CASE MANAGEMENT DISCHARGE SUMMARY PATIENT: MARILIN RAMIREZ UNIT: [id number] ADM DATE: 11/19/20 AGE: 40 : 80 SEX: F ROOM/BED: D.2109 AUTHOR: KAITLIN,DOC PHYSICIAN: REFERRING PHYSICIAN: MARGO LOCKETT DO DATE OF SERVICE: 11/23/20 Case Management Discharge Planning Summary COMMENTS ENTERED DATE: 11/22/20 16:51 CT COMMENT TYPE: Discharge Planning REVIEWER: Bebe Sawyer CM met with patient to discuss discharge planning/needs. She lives with 2 adult room mates. States she is independent with her care. States she has dialysis TTHSA at [facility] from [phone]. States she has a walker, wheelchair, cane and a prosthetic leg. Denies need for further DME. States her dad will transport her home. Her PCP is Nikolay Samano in [place] and uses the [facility] in [place]. Declines need for home health or rehab. No needs identified. DCP REVIEW SUMMARY ANTICIPATED D/C DATE: EXPECTED LOS : CASE STATUS: DCP Initiated INITIAL REVIEW: 11/22/2020 INITIAL REVIEWER: Bebe Sawyer FINAL DISCHARGE DISPOSITION: : FINAL REVIEWER: FINAL REVIEW DATE: DCP Focus Questions & Answers DCP REV -DCP Review Added on: 11/22/20 4:50 pm QUESTION: ANSWER DCP Screen High Risk Factors: : 3 or more ED visits within the last 60 days DCP Evaluation Patient gives permission to discuss discharge plans with: (name, relationship and number) : Noelle Ramirez - mother - [phone] Pallavi Crzu - sister - [phone] Physical Status: : Independent with ADL's Baseline cognitive status: : *Oriented to person, place, situation, time and present Patient's ability to cope with chronic illness : d. No chronic illness Family / Caregiver's ability to cope with chronic illness: : a. Adequate (ability to meet patient's medical needs, ensures patient attends medical appts.) Living Arrangements: : Home with others Medication Management: : Patient states can afford medications Pharmacy name(s): : [facility] in [place] Does Patient have transportation to get home and to follow-up medical appointments when discharged from the hospital? : Yes Equipment in use: : Cane - Single Leg Equipment in use: : Other Equipment in use: : Walker - Rolling Equipment in use: : Wheelchair Other Equipment comments: : Prosthetic leg Mental health screen: : No mental health history Resources / Services in place: : Dialysis - facility hemodialysis Contact information for resources in use: : [facility] [phone] Patient's current cognitive status: : *Oriented to person, place, situation, time and present Family / Caregiver's ability to cope with chronic illness: : a. Adequate (ability to meet patient's medical needs, ensures patient attends medical appts.) Does the patient have the ability to pay for or attain post discharge needs / services? : Yes Is there a likelihood that the patient will require additional services to return to the preadmission environment? : Yes Results of this evaluation have been discussed with: : Patient Patient and/or caregiver agree upon recommended discharge plan? : Yes Equipment needed for post hospitalization: : None Physical environment modification needed / anticipated for discharge: : No Planned post hospital services available for patient? : No Would patient like to participate in any Care Coordination programs (if applicable): : Not applicable DCP Re-evaluation Would patient like to participate in any Care Coordination programs (if applicable): : Not applicable PATIENT: MARILIN RAMIREZ ENCOUNTER: [id number] MEDICAL RECORD#: [id number] ADMISSION DATE: 11/19/2020 DISCHARGE DATE: 11/22/2020 ATTENDING MD: LOGAN: AGE: 40 MARITAL STATUS: U DC PLAN ID: [id number] FACILITY: [facility] PRINTED ON: 11/23/20 17:34 CT All edits/amendments must be made on the electronic document DICTATION DATE: 11/23/201733 CLINICAL FACULTY: DRU 11/23/201733 RPT#: [id number] DC DATE:11/22/20 STATUS: DIS IN [facility] [address] [place] [address] END OF REPORT
== END 2020-11-22 16:32 | disposition home or self-care, planned readmission (81) | DRG 314 ==
LOC: D.M2 16:26
PROVIDERS: Surgery; ADMIT Internal Medicine; ATTEND Internal Medicine
PROC: 06HY33Z Insertion of Infusion Device into Lower Vein, Percutaneous Approach (ICD-10-PCS; principal; 2020-11-20 08:24)
DX: T82.867A Thrombosis due to cardiac prosthetic devices, implants and grafts, initial encounter (principal); N18.6 End stage renal disease; I12.0 Hypertensive chronic kidney disease with stage 5 chronic kidney disease or end stage renal disease; E11.22 Type 2 diabetes mellitus with diabetic chronic kidney disease

== ENCOUNTER 2020-12-02 08:23 | Day surgery (SDC) | payer BC ==
[~2020-12-02] VITALS: Ht 167.6 cm; Wt 113.4 kg
[~2020-12-02 08:23] MED LIST changes: +CARDURA2 MG PO; +METOPROLOL TART50 MG PO; +PLAVIX75 MG PO
[2020-12-02 08:46] LABS: BASOPHILS 0.6 % (0-2); EOSINOPHILS 8.9 % (0-7); HEMATOCRIT 29.2 % (36.0-48.0); HEMOGLOBIN 9.1 g/dL (12-16); IMMATURE GRANULOCYTES 0.4 % (0-5); LYMPHOCYTE ABS# 1.26 10x3/uL (1.18-3.74); MCH 29.3 pg (26.0-34.0); MCHC 31.2 g/dL (31.0-37.0); MCV 93.9 fL (80.0-100.0); MEAN PLATELET VOLUME 9.4 fL (7.4-10.4); MONOCYTES 10.6 % (2-11); NEUTROPHIL ABS# 2.92 10x3/uL (1.56-6.13); NEUTROPHILS 55.5 % (40-80); RBC 3.11 10x6/uL (4.00-5.40); RDW 14.7 % (11.5-14.5); WBC 5.3 10x3/uL (4.8-10.8)
[2020-12-02 08:47] LABS: PLATELET COUNT 298 10x3/uL (130-400)
[2020-12-02 08:57] LABS: CALCIUM 8.3 mg/dL (8.5-10.1); CREATININE - SERUM 9.5 mg/dL (0.6-1.3)
[2020-12-02 09:06] LABS: INR 1.09 (0.85-1.17); PROTIME 13.1 SECONDS (11.6-15.0)
[2020-12-02 12:44] VITALS: BP 181/81; Ht 167.6 cm; Wt 113.4 kg
[2020-12-02 12:48] LABS: HCG SERUM NEGATIVE (NEGATIVE)
--- NOTE | 2020-12-02 21:37 | NUR ---
IV D/C'D WITH CANNULA INTACT, PRESSURE HELD AND DRSG PLACED. DISCHARGE INSTRUCTIONS GIVEN TO PT AND SHE VERBALIZED AN UNDERSTANDING
--- NOTE | 2020-12-20 18:26 | OP ---
PATIENT NAME: MARILIN RAMIREZ MEDICAL RECORD: [id number] :80 LOCATION:[facility] ADMISSION DATE: SURGEON: KYRIE TREVIZO MD DATE OF OPERATION: 12/02/2020 REFERRING PHYSICIAN: Sanchez Proctor MD SURGEON: Kyrie Trevizo MD ANESTHESIA: General plus regional nerve block per Dr. Huff and [employer]. PREOPERATIVE DIAGNOSES: End-stage renal disease and dependence on hemodialysis. POSTOPERATIVE DIAGNOSES: End-stage renal disease and dependence on hemodialysis. OPERATION PERFORMED: Implantation of a PTFE loop graft in the right forearm between the brachial artery and basilic vein. PREOPERATIVE NOTE: Ms. Ramirez is a 40-year-old white female patient from [place], [place], who was brought to the operating room at this time for implantation of a forearm loop graft in the right arm. DESCRIPTION OF PROCEDURE: The patient was prepped and draped in a sterile manner and examined with ultrasound and then a transverse antecubital incision made in the brachial artery and the median cubital basilic vein exposed and controlled with Silastic loops. The arterial anastomosis was completed first. I chose a 4-7 taper Propaten standard wall PTFE graft without rings. There were no suitable graft with the rings available for my use today. The artery was occluded and opened and then flushed proximally and distally with heparinized saline. The arterial end of the tapered graft was bevelled and then anastomosed [id number] to [id number] with running 6-0 Prolene. The graft was then allowed to backbleed and then was flushed with heparinized saline. The suture line was hemostatic. A counter incision was made distally on the volar aspect of the forearm and the graft placed in a looping very superficial subcutaneous tunnel and brought back to the primary incision where it was shortened and bevelled. The vein was occluded proximally and distally and opened, flushed then with heparinized saline. The anastomosis was carried out [id number]-iv-[id number] to amdz-vn-ligm with continuous 6-0 Prolene and when that was completed and the occluding clamps and loops were released, both anastomoses were hemostatic and there was excellent flow in the new AV graft. The hemostasis was obtained discretely with electrocautery. The wound was irrigated with saline. It was then closed with interrupted inverted 3-0 Vicryl and running intracuticular 4-0 Stratafix and Dermabond glue. It was dressed with Maxorb AG, Tegaderm, and Cavilon skin prep. The patient was then awakened and taken to the recovery room. Blood loss during the operation was only about 10 cc, unreplaced. Sponges, instruments and needles were accounted for. No drain was used and no surgical specimen was submitted. PLAN: The patient will be discharged to home today. Given a prescription for 20 tablets of Wirt 5/325 and a return appointment to see me in the next to 14 days. OPERATIVE REPORT [id number] MARILIN RAMIREZ TRANSINT:[id number] Voice Confirmation ID: [id number] DOCUMENT ID: [id number] KYRIE TREVIZO MD at 1826 CC: SANCHEZ PROCTOR MD [id number] DICTATION DATE: 12/19/20 161 RESEARCH PROGRAM INTERN: 12/19/203 [facility] 12/02/20 [id number] [place] [address]
== END 2020-12-02 20:10 | disposition home or self-care (01) ==
LOC: D.OPS 08:23
PROVIDERS: Anesthesiology; Surgery; ATTEND Internal Medicine Nephrology
DX: N18.6 End stage renal disease (principal); Z99.2 Dependence on renal dialysis